=== PATIENT | female | born 1950 | race Caucasian/White ===

== ENCOUNTER 2017-04-07 10:38 | Emergency (ER) | payer SELFPAY ==
[~2017-04-07] VITALS: Ht 154.9 cm; Wt 62.0 kg
[2017-04-07 10:40] VITALS: Ht 154.9 cm; Wt 62.0 kg
[2017-04-07] MEDS ORDERED: ACETAMINOPHEN 325 MG TAB PO ONE (11:30)
--- NOTE | 2017-04-07 12:43 | RADRPT ---
PROCEDURE: CT Orbits without contrast. CLINICAL INDICATION: Right-sided orbital pain. TECHNIQUE: A CT of the orbits was performed on a GE 64-slice CT scanner utilizing thin section axi al images without the use of intravenous contrast. Sagittal and coronal reformatted images were mad e. The images were reviewed on a PACS workstation. The CTDIvol is 29.14 mGy and the DLP is 343.27 mG ycm. One or more of the following dose reduction techniques were used: Automated exposure control. Adjustment of the mA and/or kV according to patient size. Use of iterative reconstruction technique. COMPARISON: None. FINDINGS: The osseous structures are intact with no fracture or osseous abnormality identified. The extraocul ar muscles and optic nerves are bilaterally symmetric and normal in appearance. The globes are unre markable. The lacrimal glands appear normal. No abnormal attenuation of the intra or extraconal fa t is identified. The sella turcica is unremarkable. Small polyp versus mucous retention cyst is bossman ntified in the right maxillary sinus. Remainder of the paranasal sinuses are clear. IMPRESSION: 1. No pre/post septal cellulitis. No orbital rim fracture. RPTAT: QQ .Taryn Freitas MD, MD Date Time Electronically viewed and signed by .Taryn Freitas MD, on 04/07/2017 12:43 .O/
[2017-04-07] MEDS ORDERED: IBUP-1542 PO (12:48)
[2017-04-07] MEDS ORDERED: TRAM50TA2 PO (12:48)
--- NOTE | 2017-04-07 12:57 | ERD ---
ER Documentation Chief Complaint Date/Time DATE: 04/07/17 TIME: 12:56 Chief Complaint pt bib self with c/o headache x 1 month, no slurred speech, no facial droop HPI 67-year-old female complains of right temporal headache for last month. She points to the right orbital rim patient has a history of trauma. She denies any visual changes or visual field deficits. She denies any fevers, shortness breath or chest pain or weakness. She denies any pain other than lateral to the orbital rim. ROS All systems reviewed and are negative except as per history of present illness. Medications Home Meds Active Scripts Tramadol HCl (Tramadol HCl) 50 Mg Tablet, 50 MG PO Q4 Y for PAIN, #15 TAB Prov:MICHELE WETZEL MD 04/07/17 Ibuprofen* (Motrin*) 600 Mg Tab, 600 MG PO Q6, #15 TAB Prov:MICHELE WETZEL MD 04/07/17 Allergies Allergies: Coded Allergies: Penicillins (Verified Allergy, Mild, 04/07/17) PMhx/Soc Medical and Surgical Hx: pt denies Medical Hx, pt denies Surgical Hx History of Surgery: No Anesthesia Reaction: No Hx Neurological Disorder: No Hx Respiratory Disorders: No Hx Cardiac Disorders: No Hx Psychiatric Problems: No Hx Miscellaneous Medical Probl: No Hx Alcohol Use: No Hx Substance Use: No Hx Tobacco Use: No Smoking Status: Never smoker Physical Exam Vitals Vital Signs Date Time Temp Pulse Resp B/P Pulse Ox O2 Delivery O2 Flow Rate FiO2 04/07/17 10:40 97.9 80 16 132/59 98 Physical Exam Const: [] Alert, [id number]. Head: Atraumatic Eyes: Normal Conjunctiva. Eyes are PERRLA and extraocular movements intact ENT: Normal External Ears, Nose and Mouth. Tenderness on the right evangelical at the orbital rim. There is no pulsatile masses, erythema, warmth. Neck: Full range of motion..~ No meningismus. Resp: Clear to auscultation bilaterally Cardio: Regular rate and rhythm, no murmurs Abd: Soft, non tender, non distended. Normal bowel sounds Skin: No petechiae or rashes Back: No midline or flank tenderness Ext: No cyanosis, or edema Neur: Awake and alert Psych: Normal Mood and Affect Results 24 hrs Current Medications Medications (Trade) Dose Ordered Sig/Levy Route PRN Reason Start Time Stop Time Status Last Admin Dose Admin Acetaminophen (Tylenol Tab) 650 mg ONCE ONCE PO 04/07/17 11:30 04/07/17 11:31 DC 04/07/17 11:26 Procedures/MDM CTR return as normal by the radiologist. Patient presents with pain in the right lateral orbit which appears superficial without appreciable physical findings other than tenderness. Signs or symptoms do not suggest temporal arteritis, cellulitis, fracture, dislocation, neoplasm, mass-effect, neurologic deficit. Exam does not suggest there is any intraocular lesions as the symptoms appear very superficial. She will treated with Tylenol and tramadol further observation at home The patient was stable with no new complaints during the ER course. Clinically, there is no current evidence to suggest meningitis, sepsis, acute abdomen, pneumonia, acute coronary syndrome, pulmonary embolism, or any other emergent condition appearing to require further evaluation or hospitalization. The patient should certainly return for any new or worsening symptoms per the aftercare instructions. They should otherwise follow-up with her primary care doctor for reevaluation this week. Departure Diagnosis: Primary Impression: Headache Headache type: unspecified Headache chronicity pattern: acute headache Intractability: not intractable Qualified Code: R51 - Acute nonintractable headache, unspecified headache type Condition: Stable Patient Instructions: Headache, Unspecified Additional Instructions: Examines normal hoy. Cheque otro vez con pollard doctor primario en el proximo kothari or regresa para mas o nueva simptomas. MICHELE WETZEL MD April 07, 2017 12:57
== END 2017-04-07 13:08 | disposition home or self-care (01) ==
LOC: FTE 10:38
DX: R51 Headache (principal)
CPT/HCPCS: 70480